=== PATIENT | female | born 1955 | race Caucasian/White ===

== ENCOUNTER → 2016-08-31 | Outpatient (CLI) | payer BC ==
[~2016-08-31] MED LIST: CEFTIN250 M1 PO; CIPRO500 MG PO; LIPITOR40 MG PO; LIPITOR80 MG PO; MACROBID100 MG PO; TYLENOL325 MG PO; ZETIA10 MG PO
== END | disposition short-term general hospital (02) ==
LOC: CLUROL 14:19
DX: N20.0 Calculus of kidney (principal)